=== PATIENT | male | born 1950 | race Caucasian/White ===

== ENCOUNTER 2016-06-20 11:17 | Emergency (ER) | payer MEDICARE ==
[2016-06-20 12:32] VITALS: BP 119/73
--- NOTE | 2016-06-20 13:03 | RAD ---
INDICATION: Persistent symptoms including cough. Diagnosed with pneumonia June 06, 2016. COMPARISON: June 06, 2016 TECHNIQUE: Dual energy PA and routine lateral views of the chest were obtained. REPORT: Mild prominence of the interstitial markings without change. Negative for pleural effusion or pneumothorax. Upper normal heart size. Unremarkable central pulmonary vasculature and mediastinal contours. IMPRESSION: Unchanged mild prominence of the interstitial markings. Correlate for potential obstructive lung disease. No compelling alveolar consolidation to favor pneumonia.
--- NOTE | 2016-06-20 13:46 | UC ---
UC General HPI - HPI Summary HPI Summary: Pt had cough and uri symptoms begin 2-3 weeks ago. he felt worse earlier on in this course of illness. they obtained x ray which i reviewed and there was ? pneumonia. z pack has not helped. OTC cough med has helped. in the last week he has been downhill skiing and walking for excersize on an outdoor trail and has not had to stop for ENGLISH or taking significant breaks. no orthopnea or PND. no fever or chest pain. cough is dry. - History of Current Complaint Chief Complaint: UCRespiratory Stated Complaint: RE CK PNEUMONIA Time Seen by Provider: 06/20/16 12:41 Hx Obtained From: Patient Onset/Duration: Gradual Onset Timing: Constant Onset Severity: Moderate Current Severity: Mild - Allergy/Home Medications Allergies/Adverse Reactions: Allergies Allergy/AdvReac Type Severity Reaction Status Date / Time No Known Allergies Allergy Verified 06/20/16 12:32 Home Medications: Home Medications Tamsulosin CAP* [Flomax CAP*] 0.4 mg PO DAILY 06/20/16 [History Confirmed ] PMH/Surg Hx/FS Hx/Imm Hx Endocrine History Of: Denies: Diabetes Cardiovascular History Of: Denies: Cardiac Disorders Respiratory History Of: Reports: Bronchitis - APPROX 6 TIMES Denies: COPD, Asthma - Surgical History Surgical History: Yes Surgery Procedure, Year, and Place: 1975 - Family History Known Family History: Positive: Cardiac Disease - Social History Alcohol Use: Daily Alcohol Amount: 1 beer daily Substance Use Type: None Smoking Status (MU): Never Smoked Tobacco Review of Systems Respiratory: Cough All Other Systems Reviewed And Are Negative: Yes Physical Exam Triage Information Reviewed: Yes Appearance: Well-Appearing, No Pain Distress, Well-Nourished Vital Signs: Initial Vital Signs Temp 98.3 F 06/20/16 12:28 Pulse 57 06/20/16 12:28 Resp 16 06/20/16 12:28 BP 119/73 06/20/16 12:28 Pulse Ox 99 06/20/16 12:28 Vital Signs Reviewed: Yes Eye Exam: Normal Eyes: Positive: Conjunctiva Clear ENT Exam: Normal ENT: Positive: Normal ENT inspection. Negative: Pharynx normal, Pharyngeal erythema, Nasal congestion, TMs normal, TM bulging, TM dull, TM red, Tonsillar swelling, Tonsillar exudate, Trismus, Muffled/hoarse voice Neck exam: Normal Neck: Positive: Supple, Nontender, No Lymphadenopathy. Negative: Nuchal Rigidity - neg jvd./, Enlarged Nodes @ Respiratory: Positive: Lungs clear - good air movement throughout. he is talking comfortably and speeking in long sentences without pauses. Neg egophony. , Normal breath sounds, No respiratory distress, No accessory muscle use, Respiratory distress. Negative: Decreased breath sounds, Accessory muscle use, Crackles, Rhonchi, Stridor, Wheezing Cardiovascular: Positive: RRR, No Murmur, Pulses Normal, Brisk Capillary Refill. Negative: Tachycardia, Bradycardia Abdomen Description: Positive: Nontender Bowel Sounds: Positive: Present Musculoskeletal Exam: Normal - no calf pain/tenderness. neg homans max. no pitting edema. Musculoskeletal: Positive: Strength Intact Neurological: Positive: Alert, Muscle Tone Normal. Negative: Lethargic Psychological Exam: Normal Course/Dx - Course Course Of Treatment: we talked at length at how this best matches prolonged bronchitis of 2-3 weeks duration. no wheezing and no clinical signs of pneumonia. x ray is unchanged. he is performing his excersize and outdoor activity without needing to take breaks. we have considered chf, pe, pleural effusion, pneumothorax, cad but there is no evidence for these etiologies. he will continue cold and cough meds and we gave option for prednisone and albuterol but we not sure that this would really make a difference. if this were to continue, he would need to see pcp for further work up including PFT and possible bronchial washing and culture. he is low risk for TB. - Differential Dx - Multi-Symptom Differential Diagnoses: Aspiration, Cardiac Ischemia Provider Diagnoses: prolonged bronchitis. Discharge - Discharge Plan Condition: Good Disposition: HOME Referrals: Kenneth Salter MD [Primary Care Provider] - If Needed
== END 2016-06-20 13:55 | disposition home or self-care (01) ==
LOC: UCCORT 11:17
DX: J40 Bronchitis, not specified as acute or chronic (principal)
CPT/HCPCS: 71020; 99211; G0463

== ENCOUNTER 2016-08-20 19:23 | Emergency (ER) | payer MEDICARE ==
[2016-08-20 20:45] VITALS: BP 125/65
--- NOTE | 2016-08-20 21:11 | UC ---
Hand/Wrist HPI - HPI Summary HPI Summary: The patient comes in today for: 1. Left wrist pain: Onset: Since last week. Palliative/provocative: flexion of the left thumb Quality: Sharp Region: :Lateral aspect of the thumb (extensor area) Severity: 0/10 at rest and extension. With flexion, 10/10 Time: Comes and goes. Associated symptoms: Injury: None. Previous treatment: Nothing. Previous disease: None. Numbness: None. * - History Of Current Complaint Chief Complaint: UCUpperExtremity Stated Complaint: LEFT WRIST PAIN Time Seen by Provider: 08/20/16 21:04 Hx Obtained From: Patient ?: No - Allergies/Home Medications Allergies/Adverse Reactions: Allergies Allergy/AdvReac Type Severity Reaction Status Date / Time No Known Allergies Allergy Verified 08/20/16 20:38 PMH/Surg Hx/FS Hx/Imm Hx Previously Healthy: No - BPH. Endocrine History Of: Denies: Diabetes, Thyroid Disease, Hyperthyroidism, Hypothyroidism, Dyslipidemia Cardiovascular History Of: Denies: Cardiac Disorders, Hypertension, Pacemaker/ICD, Myocardial Infarction , Congestive Heart Failure, Atrial Fibrillation, Deep Vein Thrombosis, Bleeding Disorders Respiratory History Of: Reports: Bronchitis - APPROX 6 TIMES Denies: COPD, Asthma, Pneumonia, Pulmonary Embolism GI/ History Of: Denies: Gastroesophageal Reflux, Ulcer, Gastrointestinal Bleed, Gall Bladder Disease, Kidney Stones, Diverticulitis, Renal Disease, Urosepsis Neurological History Of: Denies: TIA, CVA, Dementia, Seizures, Migraine Psychological History Of: Denies: Anxiety, Depression, Bipolar Disorder, Schizophrenia, Post Traumatic Stress Disorder Cancer History Of: Reports: Prostate Cancer - Had radiation treatment for prostate cancer ([place]). Denies: Lung Cancer, Colorectal Cancer, Breast Cancer, Cervical Cancer Other History Of: Negative For: HIV, Hepatitis B, Hepatitis C, Anticoagulant Therapy - Surgical History Surgical History: Yes Surgery Procedure, Year, and Place: 1975 - Family History Known Family History: Positive: Cardiac Disease Negative: Hypertension - Social History Occupation: Employed Full-time Alcohol Use: Occasionally Alcohol Amount: 1 beer daily Substance Use Type: None Smoking Status (MU): Never Smoked Tobacco Review of Systems Constitutional: Negative Skin: Negative Eyes: Negative ENT: Negative Respiratory: Negative Cardiovascular: Negative Gastrointestinal: Negative Genitourinary: Negative Musculoskeletal: Arthralgia, Myalgia All Other Systems Reviewed And Are Negative: Yes Physical Exam Triage Information Reviewed: Yes Appearance: Well-Appearing, No Pain Distress, Well-Nourished Vital Signs: Initial Vital Signs Temp 97.9 F 08/20/16 20:39 Pulse 56 08/20/16 20:39 Resp 16 08/20/16 20:39 BP 125/65 08/20/16 20:39 Pulse Ox 97 08/20/16 20:39 Vital Signs Reviewed: Yes Eyes: Positive: Conjunctiva Clear. Negative: Discharge ENT: Positive: Hearing grossly normal. Negative: Pharyngeal erythema, Nasal congestion, Nasal drainage, TM bulging, TM dull, TM red, Tonsillar swelling, Tonsillar exudate Dental: Negative: Gross Decay/Caries @, Dental Fracture @ Neck: Positive: Supple, Nontender, No Lymphadenopathy. Negative: Nuchal Rigidity Respiratory: Positive: Chest non-tender, Lungs clear, No respiratory distress, No accessory muscle use. Negative: Crackles, Wheezing Cardiovascular: Positive: RRR, No Murmur Abdomen Description: Positive: Nontender, No Organomegaly, Soft. Negative: Distended, Guarding Musculoskeletal: Positive: Strength Intact, No Edema, Other: - Addis's test could not be done (thumb in fist) due to pain. However, flexion of the thumb and asking the patient to ulnar deviate it did lead to sharp increase in pain. Positive tenderness over lateral wrist at the abductor pollicis longus and extensor pollicis brevis. Neurological: Positive: Alert Psychological: Positive: Age Appropriate Behavior, Consolable Skin: Negative: rashes, breakdown Diagnostics - Radiology No standard instances Xray Interpretation: No Acute Changes Radiology Interpretation Completed By: Radiologist Hand/Wrist Course/Dx - Course Course Of Treatment: Patient told that I did not see anything on the x-ray and discussed his treatment options. He agrees to taking [id number] NSAIDS and using a thumb spica splint and following up with his primary care provider. - Differential Dx/Diagnosis Differential Diagnosis/HQI/PQRI: Bursitis, Contusion, Fracture Provider Diagnoses: DeQuervain's tendonitis of the left thumb. Discharge - Discharge Plan Condition: Stable Disposition: HOME Patient Education Materials: Finger Sprain (ED) Referrals: Kenneth Salter MD [Primary Care Provider] - 1 Week (Please see your primary care provider in about a week to see how well you are doing. If you get worse, please be seen sooner.)
--- NOTE | 2016-08-20 22:00 | RAD ---
INDICATION: Left wrist pain COMPARISON: None TECHNIQUE: AP, lateral, and oblique views were obtained. FINDINGS: The bony structures, joint spaces, and soft tissues are normal for age. IMPRESSION: NO ACUTE BONY FINDINGS.
== END 2016-08-20 22:31 | disposition home or self-care (01) ==
LOC: UCCORT 19:23
DX: M65.4 Radial styloid tenosynovitis [de Quervain] (principal)
CPT/HCPCS: 99212; G0463